=== PATIENT | female | born 1930 | race Caucasian/White ===

== ENCOUNTER 2016-04-22 20:19 | Emergency (ER) | payer OTHER ==
[~2016-04-22] VITALS: Ht 157.5 cm; Wt 61.7 kg
[2016-04-22 20:21] VITALS: BP 185/78
== END 2016-04-22 22:15 | disposition home or self-care (01) ==
LOC: EME 20:19
PROC: 2W3DX1Z Immobilization of Left Lower Arm using Splint (ICD-10-PCS; principal; 2016-04-22)
DX: S62.102A Fracture of unspecified carpal bone, left wrist, initial encounter for closed fracture (principal); W01.0XXA Fall on same level from slipping, tripping and stumbling without subsequent striking against object, initial encounter
CPT/HCPCS: 73090; 73110; 99281; 99284